=== PATIENT | female | born 1985 | race Caucasian/White ===

== ENCOUNTER 2017-07-11 18:31 | Emergency (ER) | payer SELFPAY ==
[2017-07-11 18:40] VITALS: BMI 20.2
[2017-07-11 18:43] VITALS: TEMP 98.1; O2SAT 100
[2017-07-11] MEDS ORDERED: Sodium Chloride 0.9% 1,000 ML IV ONE (19:17)
[2017-07-11] MEDS ORDERED: Iohexol 240 (50 ml) PO ONE (19:18)
[2017-07-11 19:28] LABS: RBC URINE 6 /hpf (0-3); URINE BILIRUBIN NEGATIVE (NEGATIVE); URINE BLOOD 2+ (NEGATIVE); URINE COLOR Yellow (YELLOW); URINE GLUCOSE (UA) NORMAL (Normal); URINE KETONE NEGATIVE (NEGATIVE); URINE LEUKOCYTE ESTERASE NEG Leu/uL (Negative); URINE PROTEIN NEGATIVE (NEGATIVE); URINE UROBILINOGEN NORMAL mg/dL (0.2-1.0)
--- NOTE | 2017-07-11 19:30 | C.PDOC ---
History Of Present Illness 31 year old female presents to the ED with complaints of intermittent burning abdominal pain beginning today that began in the mid-abdomen. Patient denies nausea, vomiting, fever, dysuria or hematuria. Time Seen by Provider: 07/11/17 19:10 Chief Complaint (Nursing): Abdominal Pain History Per: Patient History/Exam Limitations: no limitations Onset/Duration Of Symptoms: Hrs, Intermittent Episodes Current Symptoms Are (Timing): Still Present Location Of Pain/Discomfort: Periumbilical Quality Of Discomfort: Burning Associated Symptoms: denies: Fever, Chills, Nausea, Vomiting, Diarrhea Exacerbating Factors: None Alleviating Factors: None Recent travel outside of the [place]: No Abnormal Vaginal Bleeding: No Past Medical History Reviewed: Historical Data, Nursing Documentation, Vital Signs Vital Signs: Last Vital Signs Temp 98.1 F 07/11/17 18:40 Pulse 90 07/11/17 18:40 Resp 18 07/11/17 18:40 BP 133/91 H 07/11/17 18:40 Pulse Ox 100 07/11/17 22:33 Family History: States: Unknown Family Hx - Social History Hx Alcohol Use: No Hx Substance Use: No - Immunization History Hx Tetanus Toxoid Vaccination: No Hx Influenza Vaccination: No Hx Pneumococcal Vaccination: No Review Of Systems Constitutional: Negative for: Fever, Chills Gastrointestinal: Positive for: Abdominal Pain. Negative for: Nausea, Vomiting , Diarrhea Genitourinary: Negative for: Dysuria, Hematuria, Vaginal Bleeding Physical Exam - Physical Exam Appears: Non-toxic, No Acute Distress Skin: Warm, Dry Head: Atraumatic, Normacephalic Eye(s): bilateral: Normal Inspection Oral Mucosa: Moist Neck: Supple Chest: Symmetrical, No Deformity Cardiovascular: Rhythm Regular, No Friction Rub Respiratory: Normal Breath Sounds, No Rales, No Rhonchi, No Wheezing Gastrointestinal/Abdominal: Soft, Tenderness (localized to RLQ ), No Distention , No Guarding, No Rebound Extremity: Normal ROM, No Tenderness Neurological/Psych: Oriented x3 ED Course And Treatment - Laboratory Results Result Diagrams: 07/11/17 19:29 07/11/17 19:29 O2 Sat by Pulse Oximetry: 100 (RA) - CT Scan/US Abdomen Pelvis CT Other Rad Studies (CT/US): Read By Radiologist, Radiology Report Reviewed CT/US Interpretation: FINDINGS: Lower thorax: The bilateral lung bases are clear. ABDOMEN: Liver: No acute findings. Gallbladder and bile ducts: The gallbladder is decompressed. No calcified stones. No significant. intra- or extrahepatic biliary ductal dilation. Pancreas: Enhances homogeneously. No ductal dilation. No discrete mass. Spleen: No acute findings. Adrenals: No acute findings. Kidneys and ureters: No acute findings. No hydronephrosis or renal calculi. No discrete solid mass. PELVIS: Bladder: The bladder is distended, but otherwise unremarkable. Reproductive: No acute findings. Appendix: The contrast-filled appendix is of normal caliber (series 3, image 127 ). ABDOMEN and PELVIS: Stomach and bowel: Oral contrast extends to the level of the colon, without obstruction. No mucosal. thickening. Peritoneum: No significant fluid collection. No free air. Lymph nodes: No pathologically enlarged lymph nodes. Vasculature: Unremarkable. Bones: No acute fracture. IMPRESSION: Normal appendix. No acute abdominal pathology to account for patient's symptoms, as detailed above. Progress Note: Abdomen CT, labs, and blood work were ordered. Patient was given pepcid, toradol, and IV fluids. Disposition Counseled Patient/Family Regarding: Diagnosis - Disposition Referrals: [facility] [Outside] Disposition: HOME/ ROUTINE Disposition Time: 22:31 Condition: STABLE Prescriptions: Dicyclomine [Bentyl] 10 mg PO QID #20 cap Famotidine [Pepcid] 20 mg PO BID #20 tab Instructions: Gastritis (GEN), Diet for Ulcers and Gastritis (GEN), Abdominal Pain (ED) Forms: [facility] ([place]) - POA Present On Arrival: None - Clinical Impression Clinical Impression: Abdominal pain, Gastritis - Scribe Statement The provider has reviewed the documentation as recorded by the Scribevens Frias All medical record entries made by the Mariselaibevens were at my direction and personally dictated by me. I have reviewed the chart and agree that the record accurately reflects my personal performance of the history, physical exam, medical decision making, and the department course for this patient. I have also personally directed, reviewed, and agree with the discharge instructions and disposition.
[2017-07-11 19:32] LABS: BASO % 0.1 % (0.0-2.0); EOS # 0.1 K/uL (0.0-0.7); EOS % 1.6 % (0.0-4.0); HEMATOCRIT 34.9 % (34.0-47.0); LYMPH # 1.7 K/uL (1.0-4.3); LYMPH % 21.8 % (20.0-40.0); MEAN CELL VOLUME 87.4 fL (81.0-99.0); MEAN CORPUSCULAR HEMOGLOBIN 29.8 pg (27.0-31.0); MEAN CORPUSCULAR HGB CONC 34.2 g/dL (33.0-37.0); MONO # 0.4 K/uL (0.0-0.8); MONO % 5.2 % (0.0-10.0); RED CELL DISTRIBUTION WIDTH 12.9 % (11.5-14.5); WHITE BLOOD COUNT 7.8 K/uL (4.8-10.8)
[2017-07-11] MEDS ORDERED: Iohexol 240 (50 ml) ONE (19:34)
[2017-07-11] MEDS ORDERED: Sodium Chloride 0.9% 1,000 ML ONE (19:34)
[2017-07-11 19:41] LABS: CHLORIDE 100 mmol/L (98-107); POTASSIUM 3.7 mmol/L (3.6-5.2); SODIUM 140 mmol/L (132-148)
[2017-07-11 19:43] LABS: ALB/GLOB RATIO 1.1 (1.0-2.1); ALKALINE PHOSPHATASE 49 U/L (38-126); ALT/SGPT 28 U/L (9-52); AST/SGOT 23 U/L (14-36); BILIRUBIN,TOTAL 0.3 mg/dL (0.2-1.3); BLOOD UREA NITROGEN 10 mg/dL (7-17); CARBON DIOXIDE 26 mmol/L (22-30); GFR AFRICAN-AMERICAN > 60; GLUCOSE,RANDOM 89 mg/dL (65-105); TOTAL PROTEIN 7.7 g/dL (6.3-8.3)
[2017-07-11 19:44] LABS: CALCIUM 9.5 mg/dl (8.6-10.4)
[2017-07-11] MEDS ORDERED: Iodixanol 320 MG/ML 100 ML BOTTLE IV ONE (20:37)
--- NOTE | 2017-07-11 22:27 | CT ---
EXAM: CT Abdomen and Pelvis With Intravenous Contrast CLINICAL HISTORY: 31 years old, female; Pain; Abdominal pain; Flank; Right lower quadrant (rlq); Additional info: Rlq abd pain TECHNIQUE: Axial computed tomography images of the abdomen and pelvis with intravenous contrast. All CT scans at this facility use one or more dose reduction techniques, viz.: automated exposure control; ma/kV adjustment per patient size (including targeted exams where dose is matched to indication; i.e. head); or iterative reconstruction technique. Coronal and sagittal reformatted images were created and reviewed. CONTRAST: 100 mL of visipaque 320 administered intravenously. COMPARISON: No relevant prior studies available. FINDINGS: Lower thorax: The bilateral lung bases are clear. ABDOMEN: Liver: No acute findings. Gallbladder and bile ducts: The gallbladder is decompressed. No calcified stones. No significant intra- or extrahepatic biliary ductal dilation. Pancreas: Enhances homogeneously. No ductal dilation. No discrete mass. Spleen: No acute findings. Adrenals: No acute findings. Kidneys and ureters: No acute findings. No hydronephrosis or renal calculi. No discrete solid mass. PELVIS: Bladder: The bladder is distended, but otherwise unremarkable. Reproductive: No acute findings. Appendix: The contrast-filled appendix is of normal caliber (series 3, image 127). ABDOMEN and PELVIS: Stomach and bowel: Oral contrast extends to the level of the colon, without obstruction. No mucosal thickening. Peritoneum: No significant fluid collection. No free air. Lymph nodes: No pathologically enlarged lymph nodes. Vasculature: Unremarkable. Bones: No acute fracture. IMPRESSION: Normal appendix. No acute abdominal pathology to account for patient's symptoms, as detailed above.
[2017-07-11 23:14] VITALS: BP 123/78; PULSE 88; RESP 20
== END 2017-07-11 22:55 | disposition home or self-care (01) ==
LOC: C.ER 18:31
DX: K29.70 Gastritis, unspecified, without bleeding (principal); R10.31 Right lower quadrant pain
CPT/HCPCS: 74177; 80053; 81001; 83690; 84703; 85025; 96361; 96374; 96375; 99284; J1885; J7040; Q9966; Q9967